=== PATIENT | male | born 1940 | race Caucasian/White ===

== ENCOUNTER → 2016-10-08 | Outpatient (CLI) | payer MEDICARE, BC ==
[~2016-10-08] MED LIST: ACETAMINOPHEN500 M3 PO; ASPIRIN PO; ASPIRIN81 M2 PO; CADUET 10 MG/401 TAB PO; CALCIUM + D 6001 TA1 PO; CALCIUM PO; CARAFATE PO; CARAFATE1 G PO; DARVOCET-N 1001 TAB PO; GLUCOSAMINE + MSM; HYDROCODON-ACE1 EAC7 PO; HYTRIN10 M1 PO; IBUPROFEN PO; IMDUR-ER30 M3 PO; LASIX20 MG PO; LIPITOR40 MG PO; LODINE PO; METOPROLOL TART25 MG PO; MULTI-VITAMIN1 TAB PO; NORVASC PO; OYSTER CALCIUM500 MG PO; PLAVIX300 MG PO; PROTONIX PO; TOPROL XL PO; VITAMIN D 4001 UDTAB PO; ZESTORETIC 20/11 TA1 PO; ZESTORETIC 20/11 TAB PO; ZOCOR PO
[2016-10-08 16:08] LABS: CREATININE SERUM 1.5 mg/dL (0.6-1.4); GLOM FILT RATE Estimated 48.2 mL/min (>60)
== END | disposition home or self-care (01) ==
LOC: CLAB 15:02
DX: I65.23 Occlusion and stenosis of bilateral carotid arteries (principal); I73.9 Peripheral vascular disease, unspecified
CPT/HCPCS: 36415; 82565

== ENCOUNTER → 2016-10-14 | Outpatient (CLI) | payer MEDICARE, BC ==
--- NOTE | ~2016-10-14 | CT17 ---
[facility] A Service of [facility] & [facility] RADIOLOGY TEXT RESULTS PATIENT: LJ HUDSON LOCATION: [facility] EDT : 38 UNIT #: [id number] AGE: [address]: Mily Miller MD SEX: M ORDER DR: [id number] [facility] [address] [place], [place] [address] [id number] O MR#: [id number] [facility] #: [id number] NAME: LJ HUDSON : 1940 SEX: M STUDY DATE/TIME: 10/14/2016 9:16 UNIT: [facility] ROOM: STUDY DESCRIPTION: CT Angio Head Attending Physician: Mily Miller M.D. Referring Physician: Mily Miller M.D. Ordering Physician: Mily Miller M.D. Primary Care Physician: Steve Andrade M.D. MEDICAL IMAGING REPORT This report is preliminary unless electronic signature is present EXAM Head and neck CT angiogram with contrast 10/14/2016 COMPARISON Prior head and neck CT angiogram 12/31/2014 CLINICAL HISTORY History of carotid atherosclerosis and documented carotid stenosis. No new symptoms. Routine follow up. TECHNIQUE This CT exam was performed with one or more of the following radiation dose reduction techniques: automatic exposure control, adjustment of mA and/or kV according to patient size, and iterative reconstruction. FINDINGS The left vertebral artery originates directly from the aortic arch. There is no proximal great vessel stenosis. There is moderate stenosis in the right innominate artery and involving the right common carotid origin. The right vertebral artery origin is patent. There is mild stenosis in the right mid cervical common carotid with eccentric plaque. There is also plaque at the carotid bifurcation but no more than 10%-20% right ICA stenosis by NASCET criteria. The upper cervical right ICA is normally patent. There is plaque at the left carotid bifurcation, with probably a 20% -25% left ICA stenosis by NASCET criteria. There is mild distal left common carotid stenosis as well. The upper cervical left ICA is normally patent. Intracranially, both vertebral arteries supply the basilar artery. The posterior communicators and anterior communicator appear patent. There is no evidence of substantial flow-limiting stenosis or intracranial aneurysm. [facility] A Service of [facility] & [facility] RADIOLOGY TEXT RESULTS PATIENT: LJ HUDSON LOCATION: [facility] : 38 UNIT #: [id number] AGE: [address]: Mily Miller MD SEX: M ORDER DR: The dural venous sinuses are normal. There is no intracranial mass or abnormal enhancement. The extracranial soft tissues are normal. The cervical soft tissues are unremarkable. The lung apices show emphysematous changes but no acute abnormality. IMPRESSION Plaque in both carotid systems with areas of cervical common carotid stenosis bilaterally but plaque in the cervical carotid bifurcation produces no more than 10%-20% internal carotid stenosis on either side by NASCET criteria. The upper cervical ICAs are patent. Both vertebral arteries are patent. There may be mild to moderate or moderate stenosis at the origin of the right common carotid from the right innominate, though this is partially obscured by streak artifact from contrast inflow. There is probably effective moderate stenosis of the subclavian as well. There is no intracranial aneurysm or substantial intracranial flow-limiting stenosis. Dictated by... Fredo Chávez M.D. THIS IS AN ELECTRONICALLY VERIFIED REPORT Fredo Chávez M.D. at 10/15/2016 4:14 PM TEV/to TD: 10/14/2016 18:17 JOB #: [id number] MEDICAL IMAGING REPORT COPY
[2016-10-14 14:01] LABS: POC - CREATININE 1.17 mg/dL (0.64-1.27); POC - GFR >60.0 mL/min (>60)
== END | disposition home or self-care (01) ==
LOC: CCAT 08:33
PROVIDERS: Surgery Vascular Surgery
DX: I65.23 Occlusion and stenosis of bilateral carotid arteries (principal); I73.9 Peripheral vascular disease, unspecified
CPT/HCPCS: 70496; 70498; 82565; Q9967